=== PATIENT | male | born 1990 | race Two or more races ===

== ENCOUNTER 2020-04-12 21:45 | Emergency (ER) | payer SELFPAY ==
[~2020-04-12] VITALS: Ht 182.9 cm; Wt 88.0 kg
[2020-04-13 07:27] VITALS: BP 99/60
== END 2020-04-13 08:39 | disposition home or self-care (01) ==
LOC: ER 21:46
DX: T50.901A Poisoning by unspecified drugs, medicaments and biological substances, accidental (unintentional), initial encounter (principal); R11.2 Nausea with vomiting, unspecified; F19.10 Other psychoactive substance abuse, uncomplicated; Y92.89 Other specified places as the place of occurrence of the external cause